=== PATIENT | female | born 1935 | race Caucasian/White ===

== ENCOUNTER 2017-03-28 16:13 | Emergency (ER) | payer MEDICARE, OTHER ==
[~2017-03-28] VITALS: Ht 157.4 cm; Wt 52.2 kg
[~2017-03-28 16:13] MED LIST: BACTROBAN OINT22 GM PO; KEFLEX500 MG PO; TRAMADOL HCL50 MG PO; VICODIN 5/500 505 MG PO; VOLTAREN1% TP
[2017-03-28] MEDS ORDERED: PRAVASTATIN SOD40 MG PO (16:26)
[2017-03-28] MEDS ORDERED: LISINOPRIL AND1 TAB PO (16:26)
[2017-03-28] MEDS ORDERED: METOCLOPRAMIDE10 M1 PO (16:26)
[2017-03-28] MEDS ORDERED: OMEPRAZOLE40 MG PO (16:27)
[2017-03-28 17:26] LABS: BASO % 0.4 % (0.0-1.0); EOS % 0.5 % (1.0-4.0); HEMATOCRIT 33.8 % (37.0-47.0); HEMOGLOBIN 11.1 g/dl (12.0-16.0); LYMPH # 1.5 10*3/uL (1.3-4.4); LYMPH % 18.7 % (27.0-41.0); MEAN CELL VOLUME 90.6 fl (81.0-99.0); MEAN CORPUSCULAR HGB 29.8 pg (27.0-31.0); MEAN CORPUSCULAR HGB CONC 32.8 g/dl (33.0-37.0); MONO # 0.6 10*3/uL (0.1-1.0); MONO % 7.8 % (3.0-9.0); NEUT # 5.8 10*3/uL (2.3-7.9); NEUT % 72.3 % (47.0-73.0); PLATELET COUNT AUTOMATED 197 10*3/uL (130-400); RED BLOOD COUNT 3.73 10*6/uL (4.10-5.10); RED CELL DISTRI WIDTH 14.3 % (0-14.5)
[2017-03-28 17:47] LABS: ALBUMIN 3.1 gm/dl (3.1-4.5); BILIRUBIN, TOTAL 0.4 mg/dl (0.2-1.0); CKMB 2.4 ng/ml (0.5-3.6); MAGNESIUM 2.3 mg/dL (1.5-2.1); POTASSIUM 3.2 mmol/L (3.5-5.1); TOTAL PROTEIN 6.3 gm/dL (6.4-8.2); TROPONIN I 0.023 ng/ml (<0.045)
[2017-03-28 19:42] LABS: BILIRUBIN NEGATIVE (NEGATIVE); BLOOD NEGATIVE (NEGATIVE); CLARITY SL CLOUDY (CLEAR); COLOR YELLOW (YELLOW); GLUCOSE NEGATIVE (NEGATIVE); KETONE TRACE (NEGATIVE); LEUKO ESTERASE 2+ (NEGATIVE); NITRITE NEGATIVE (NEGATIVE); PH 5.5 (5.0-9.0); PROTEIN NEGATIVE (NEGATIVE); UROBILINOGEN 0.2 E.U./dl (0.2-1.0)
[2017-03-28 19:47] LABS: BACTERIA 2+; EPITHELIAL CELLS 0-2; RBC 0-2 rbc/hpf (0-2); URINE REFLEX COMMENT YES (NO); WBC 21-30 wbc/hpf (0-5)
[2017-03-28] MEDS ORDERED: MACROBID100 M1 PO (21:33)
== END 2017-03-28 21:45 | disposition home or self-care (01) ==
LOC: ED 16:13
PROVIDERS: Physician Assistant
DX: E86.0 Dehydration (principal); J02.9 Acute pharyngitis, unspecified; N30.00 Acute cystitis without hematuria; Z90.49 Acquired absence of other specified parts of digestive tract

== ENCOUNTER → 2017-05-05 | Outpatient (CLI) | payer OTHER ==
[~2017-05-05] MED LIST changes: +LISINOPRIL AND1 TAB PO; +MACROBID100 M1 PO; +METOCLOPRAMIDE10 M1 PO; +OMEPRAZOLE40 MG PO; +PRAVASTATIN SOD40 MG PO
[2017-05-05 12:33] LABS: BASO % 0.5 % (0.0-1.0); EOS # 0.2 10*3/uL (0.0-0.4); EOS % 2.9 % (1.0-4.0); HEMATOCRIT 35.4 % (37.0-47.0); HEMOGLOBIN 10.9 g/dl (12.0-16.0); LYMPH # 2.3 10*3/uL (1.3-4.4); LYMPH % 41.1 % (27.0-41.0); MEAN CELL VOLUME 89.4 fl (81.0-99.0); MEAN CORPUSCULAR HGB 27.5 pg (27.0-31.0); MEAN CORPUSCULAR HGB CONC 30.8 g/dl (33.0-37.0); MEAN PLATELET VOLUME 12.2 fl (9.6-12.3); MONO # 0.4 10*3/uL (0.1-1.0); MONO % 6.8 % (3.0-9.0); NEUT # 2.7 10*3/uL (2.3-7.9); NEUT % 48.5 % (47.0-73.0); PLATELET COUNT AUTOMATED 204 10*3/uL (130-400); RED BLOOD COUNT 3.96 10*6/uL (4.10-5.10); RED CELL DISTRI WIDTH 14.2 % (0-14.5); WHITE BLOOD COUNT 5.6 10*3/uL (4.8-10.8)
[2017-05-05 13:01] LABS: ALBUMIN 3.2 gm/dl (3.1-4.5); ALKALINE PHOSPHATASE 105 U/L (45-117); BILIRUBIN, DIRECT < 0.1 mg/dL (0.0-0.2); BILIRUBIN, TOTAL 0.4 mg/dl (0.2-1.0); BUN 22 mg/dl (7-24); CARBON DIOXIDE 29 mmol/L (21-32); CHLORIDE 105 mmol/L (98-107); CHOLESTEROL 191 mg/dL (<200); EST GLOM FILT AFRICAN AMERICAN > 60 ml/min; GLUCOSE 79 mg/dL (65-99); HDL CHOLESTEROL 74 mg/dl (40-60); LDL CHOLESTEROL 94 mg/dL (9-159); PHOSPHOROUS 3.2 mg/dL (2.5-4.9); POTASSIUM 3.8 mmol/L (3.5-5.1); SGOT/AST 27 IU/L (3-35); SGPT/ALT 18 U/L (12-78); SODIUM 141 mmol/L (136-145); TOTAL PROTEIN 6.8 gm/dL (6.4-8.2); TRIGLYCERIDES 113 mg/dl (<150); VLDL CHOLESTEROL 23 mg/dL (6-40)
== END | disposition home or self-care (01) ==
LOC: LAB 01:40
PROVIDERS: Internal Medicine
DX: I10 Essential (primary) hypertension (principal); E78.5 Hyperlipidemia, unspecified

== ENCOUNTER 2017-10-20 18:02 | Emergency (ER) | payer OTHER ==
[~2017-10-20] VITALS: Ht 154.9 cm; Wt 55.3 kg
== END 2017-10-20 19:46 | disposition home or self-care (01) ==
LOC: ED 18:02
DX: S09.90XA Unspecified injury of head, initial encounter (principal); Z79.899 Other long term (current) drug therapy; W18.39XA Other fall on same level, initial encounter; Y93.01 Activity, walking, marching and hiking; Y92.89 Other specified places as the place of occurrence of the external cause; Y99.8 Other external cause status

== ENCOUNTER 2020-03-18 10:53 | Inpatient (IN) | payer OTHER ==
[2020-03-18] VITALS (11 sets, daily range): BP systolic 62–182; BP diastolic 43–113
[~2020-03-18] VITALS: Ht 154.9 cm; Wt 49.0 kg
[2020-03-18] MEDS ORDERED: ATIVAN0.5 MG PO (11:49)
[2020-03-18] MEDS ORDERED: REMERON15 M2 PO (11:53)
[2020-03-18] MEDS ORDERED: VENLAFAXINE HYD75 MG PO (12:08)
--- NOTE | 2020-03-18 12:16 | NUR ---
Pt states she is doing much better after pain medication.
[2020-03-18 12:44] LABS: ACT PARTIAL THROMBO TIME 22.2 SECONDS (20.0-32.1)
[2020-03-18 12:50] LABS: ALBUMIN 2.7 gm/dl (3.1-4.5); CREATININE 1.08 mg/dL (0.55-1.02); POTASSIUM 3.4 mmol/L (3.5-5.1); TOTAL PROTEIN 5.9 gm/dL (6.4-8.2)
[2020-03-18 12:54] LABS: TROPONIN I 0.231 ng/ml (<0.045)
[2020-03-18 14:06] LABS: BILIRUBIN NEGATIVE (NEGATIVE); CLARITY CLEAR (CLEAR); COLOR YELLOW (YELLOW); GLUCOSE NEGATIVE (NEGATIVE); KETONE NEGATIVE (NEGATIVE)
[2020-03-18 14:07] LABS: BLOOD NEGATIVE (NEGATIVE); LEUKO ESTERASE NEGATIVE (NEGATIVE); NITRITE NEGATIVE (NEGATIVE); PH 7.5 (5.0-9.0); SPECIFIC GRAVITY 1.015 (1.005-1.030); UROBILINOGEN 0.2 E.U./dl (0.2-1.0)
[2020-03-18 14:09] LABS: BACTERIA TRACE
[2020-03-18 14:16] LABS: BASO % 0.1 % (0.0-1.0); LYMPH # 1.3 10*3/uL (1.3-4.4); LYMPH % 9.8 % (27.0-41.0); MEAN CELL VOLUME 90.5 fl (81.0-99.0); MEAN CORPUSCULAR HGB 29.8 pg (27.0-31.0); MEAN CORPUSCULAR HGB CONC 32.9 g/dl (33.0-37.0); MEAN PLATELET VOLUME 13.3 fl (9.6-12.3); MONO # 0.5 10*3/uL (0.1-1.0); MONO % 3.6 % (3.0-9.0); NEUT % 85.6 % (47.0-73.0); PLATELET COUNT AUTOMATED 122 10*3/uL (130-400); RED CELL DISTRI WIDTH 13.9 % (0-14.5); WHITE BLOOD COUNT 12.8 10*3/uL (4.8-10.8)
--- NOTE | 2020-03-18 14:40 | NUR ---
PT C/O NAUSEA DR CONROY NOTIFIED.
--- NOTE | 2020-03-18 15:54 | NUR ---
PT STATES SHE FEELS MUCH BETTER AFTER PAIN MEDS
--- NOTE | 2020-03-18 17:00 | NUR ---
A 84, admitted to , under the services of JEANINE Moore DO with a diagnosis of ELEVATED TROPONIN, METABOLIC ENCEPHALOPATHY. Chief complaint is ABDOMINAL PAIN, SOB. Patient arrived via bed from ER. Monitor applied. Initial assessment completed. Vital signs taken and recorded. JEANINE MOORE DO notified of admission to the unit. Orders received. See assessment for past medical history, medications and allergies. Patient and/or family oriented to unit. [facility] visitation policy reviewed. Clothing/patient valuable form completed. KT LARA
--- NOTE | 2020-03-18 18:00 | NUR ---
PT ON BED LEÓN. BP 188/96 MANUAL. PT ALERT AND CONFUSED IV LABETALOL GIVEN PER POLICY FOR SYSTOLIC BP GREATER THEN 160. DR. HICKS TO THE FLOOR TO SEE PATIENT AND CALLED THIS NURSE INTO THE ROOM FOR A CHANGE IN MENTAL STATUS. MANUAL BP FOUND TO BE 80/44 MANUALLY. PULSE OX 85%. PT PLACED ON 02 AND NORMAL SALINE @999.REPEAT BP AFTER 10 MINUTES FOUND TO BY 119/84. PT NO ALERT BUT REMIANS CONFUSED. DR. HICKS AT THE BEDSIDE DURING EPISODE.
--- NOTE | 2020-03-18 19:15 | NUR ---
THIS NURSE CALLED INTO ROOM. PATIENT UNRESPONSIVE. HAD LARGE BLACK BOWEL MOVEMENT. LABORED RESPIRATIONS, PULSE OX 98 ON 2L NC. BP 90/50S. DR. HERNANDEZ CALLED TO FLOOR. PATIENTS IV BAD. NEW IV STARTED IN LEFT ARM. IV FLUIDS INCREASED TO 250CC. WHEN DR. HERNANDEZ ARRIVED IN ROOM PATIENT BLOOD PRESSURE DROPPED TO 60S/30S. DR. HERNANDEZ PUT A CENTRAL LINE IN AND ORDERED LEVOPHED. [facility].
--- NOTE | 2020-03-18 19:15 | NUR ---
THIS NURSE CALLED INTO ROOM. PATIENT UNRESPONSIVE. HAD LARGE BLACK BOWEL MOVEMENT. LABORED RESPIRATIONS, PULSE OX 98 ON 2L NC. BP 90/50S. DR. HERNANDEZ CALLED TO FLOOR. PATIENTS IV BAD. NEW IV STARTED IN LEFT ARM. IV FLUIDS INCREASED TO 250CC. WHEN DR. HERNANDEZ ARRIVED IN ROOM PATIENT BLOOD PRESSURE DROPPED TO 60S/30S. DR. HERNANDEZ PUT A CENTRAL LINE IN AND ORDERED LEVOPHED. [facility]
[2020-03-18 19:34] LABS: ABG BASE EXCESS -9.7 mmol/L (-2.0-2.0); ARTERIAL BLOOD GAS PH 7.388 (7.35-7.45)
--- NOTE | 2020-03-18 20:20 | NUR ---
PATIENT TAKEN UP TO 502-1. REPORT GIVEN TO JENNIFER SIMMS
[2020-03-18 20:29] LABS: BASO % 0.1 % (0.0-1.0); HEMATOCRIT 25.2 % (37.0-47.0); LYMPH # 1.5 10*3/uL (1.3-4.4); LYMPH % 13.9 % (27.0-41.0); MEAN CORPUSCULAR HGB 30.2 pg (27.0-31.0); MEAN CORPUSCULAR HGB CONC 31.3 g/dl (33.0-37.0); MEAN PLATELET VOLUME 13.4 fl (9.6-12.3); MONO # 0.4 10*3/uL (0.1-1.0); MONO % 3.5 % (3.0-9.0); NEUT # 8.7 10*3/uL (2.3-7.9); NEUT % 81.1 % (47.0-73.0); PLATELET COUNT AUTOMATED 148 10*3/uL (130-400); RED BLOOD COUNT 2.62 10*6/uL (4.10-5.10); RED CELL DISTRI WIDTH 14.2 % (0-14.5); WHITE BLOOD COUNT 10.8 10*3/uL (4.8-10.8)
[2020-03-18 20:30] LABS: MEAN CELL VOLUME 96.2 fl (81.0-99.0)
[2020-03-18 20:47] LABS: CREATININE 1.39 mg/dL (0.55-1.02)
[2020-03-18 20:55] LABS: POTASSIUM 5.4 mmol/L (3.5-5.1)
--- NOTE | 2020-03-18 21:08 | NUR ---
AT 2024, PT RECEIVED FROM 4TH FLOOR. SHE WAS LETHARGIC, PALE, AND COOL TO TOUCH. HER INITIAL BP 62/59, HR 73, RR 22, AND PULSE OX 96% ON NC2. DR HERNANDEZ NOTIFIED. DR JORGENSEN HAD SPOKEN WITH DAUGHTER AND PT TO BE NO INTUBATION PER THAT CONVERSATION AND RELAYED TO ME IN REPORT. 2029 NS WIDE OPEN AND BP TO 79/43. RESPIRATIONS ARE MOIST WITH CRACKLES NOTED THROUGHOUT. 2039 PT'S RESPIRATIONS NOTED BEING MORE SHALLOW TO AGONAL. PULSE OX REMAINS LOW 90'S. 2042 RAPID RESPONSE CALLED RE: AGONAL RESPIRATIONS AND HR SLOWING TO 53/MIN. PULSE OX TO MID 80'S AND O2 TITRATED UP. TO CODE BLUE. 2044 NO PULSE PALPATED AT THIS TIME AND PT IS APNEIC. COMPRESSIONS BEING DONE. PT WAS GIVEN EPINEPHRINE. NS ONLY REMAINS INFUSING. PT HAD LG EMESIS OF BRIGHT RED BLOOD AND WAS IMMEDIATELY SUCTIONED WITH YANKAR. 2049 AFTER CONTINUED COMPRESSIONS, PT CONTINUED WITH APNEA AND BEING PULSELESS. SHE CONTINUED TO HAVE BRIGHT RED FLUID FROM MOUTH. CODE TERMINATED. 2099 DR HERNANDEZ SPOKE WITH FAMILY TO INFORM THEM OF EVENTS. PT BATHED AND MOVED TO NEXT ROOM. THEY ARE ON THEIR WAY IN TO SEE PT.
--- NOTE | 2020-03-18 21:25 | NUR ---
DAUGHTER IS HERE. EMOTIONAL SUPPORT GIVEN.
--- NOTE | 2020-03-18 21:43 | NUR ---
PT HAD RECEIVED APPROXIMATELY 300CC OF NS ON INPT ON 100CC ON THIS FLOOR FOR A TOTAL OF 300CC. [facility] NOTIFIED... I SPOKE WITH VICTOR HUGO AND REFERENCE # IS [id number]. THEY ARE GOING TO PUT A HOLD ON HER BUT SHE CAN GO TO THE [facility] [place]. THEY WILL FAX OVER CHART INFORMATION REQUEST.
--- NOTE | 2020-03-18 21:47 | NUR ---
DR HERNANDEZ IS AT BEDSIDE TALKING WITH PT'S DAUGHTER AT THIS TIME.
--- NOTE | 2020-03-18 22:17 | NUR ---
As patient's admission is under 24 hours, [facility] [employer] Assistant, Jeff, notofied of jesse's . Case reviewed. Patient released to go to the home of family's choice.
--- NOTE | 2020-03-18 22:45 | NUR ---
PT'S DAUGHTER TOOK ALL OF HER BELONGINGS HOME. [facility] "HOLD" PAPER TAPED TO PT'S CHEST. RT IJ CENTRAL LINE REMOVED. SMALL ROLL OF KERLEX (PLACED IN MOUTH TO CONTAIN LG AMTS OF BLOOD POST MORTEM) REMAINS IN MOUTH. SECURITY AWARE THAT PT CAN GO TO [facility] AT THIS TIME.
--- NOTE | 2020-03-18 23:03 | NUR ---
[place] [facility] [place] UNTIL RELEASED BY [facility].
--- NOTE | 2020-03-18 23:20 | NUR ---
VICTOR HUGO, FROM [facility], CALLS AND INFORMS ME THAT THEY ARE RELEASING THE PT AND THAT THE PT CAN GO TO THE HOME.
== END 2020-03-18 20:50 | disposition expired | DRG 70 ==
LOC: ED 10:53 → EDHOLD 15:41 → 4E 16:25 → 5E 20:23
PROVIDERS: Emergency Medicine; Internal Medicine; ADMIT Internal Medicine
PROC: 02H633Z Insertion of Infusion Device into Right Atrium, Percutaneous Approach (ICD-10-PCS; principal; 2020-03-18)
PROC: 5A12012 Performance of Cardiac Output, Single, Manual (ICD-10-PCS; principal; 2020-03-18)
PROC: B548ZZA Ultrasonography of Superior Vena Cava, Guidance (ICD-10-PCS; principal; 2020-03-18)
DX: G93.41 Metabolic encephalopathy (principal); N17.0 Acute kidney failure with tubular necrosis; K92.0 Hematemesis; I95.9 Hypotension, unspecified; E86.0 Dehydration; R10.84 Generalized abdominal pain; E87.6 Hypokalemia; I16.0 Hypertensive urgency; D72.829 Elevated white blood cell count, unspecified; E87.8 Other disorders of electrolyte and fluid balance, not elsewhere classified; E87.5 Hyperkalemia; D50.0 Iron deficiency anemia secondary to blood loss (chronic); R73.9 Hyperglycemia, unspecified; F41.9 Anxiety disorder, unspecified; E78.5 Hyperlipidemia, unspecified; F32.9 Major depressive disorder, single episode, unspecified; K21.9 Gastro-esophageal reflux disease without esophagitis; I10 Essential (primary) hypertension; I46.9 Cardiac arrest, cause unspecified; Z87.440 Personal history of urinary (tract) infections; Z82.3 Family history of stroke; Z79.899 Other long term (current) drug therapy; Z90.49 Acquired absence of other specified parts of digestive tract; Z98.51 Tubal ligation status